=== PATIENT | male | born 1975 | race Caucasian/White ===

== ENCOUNTER 2020-08-21 21:02 | Outpatient (REF) | payer MEDICAID, SELFPAY ==
[2020-08-23 16:30] LABS: COVID-19 RT-PCR UVMMC Result Negative (Negative)
== END 2020-08-21 21:22 ==
LOC: NCHCN 21:02
PROVIDERS: PCP Nurse Practitioner Family; Visit Provider Nurse Practitioner Family
DX: J06.9 Acute upper respiratory infection, unspecified (principal)
CPT/HCPCS: U0003

== ENCOUNTER 2020-09-05 16:20 | Outpatient (REF) | payer MEDICAID, SELFPAY ==
[2020-09-05 20:07] LABS: Cholesterol 254 mg/dL (<200); HDL Cholesterol 33 mg/dL (40-60); Triglyceride 480 mg/dL (<150)
[2020-09-05 20:33] LABS: LDL CHOLESTEROL 162 mg/dL (<100)
== END 2020-09-05 16:40 ==
LOC: NCHCN 16:20
PROVIDERS: PCP Nurse Practitioner Family; Visit Provider Family Medicine
DX: Z13.1 Encounter for screening for diabetes mellitus (principal); Z13.220 Encounter for screening for lipoid disorders
CPT/HCPCS: 80061; 83721; 83036

== ENCOUNTER 2020-12-07 09:38 | Outpatient (CLI) | payer MEDICAID, SELFPAY ==
--- NOTE | 2020-12-07 14:53 | DI.RAD_ITS ---
Exam(s) XR CHEST 2V PA LATERAL EXAM: XR CHEST 2V PA LATERAL CLINICAL HISTORY: COUGH, R05,DYSPNEA ON EXERTION,R06.09. TECHNIQUE: 2D digital imaging was performed. COMPARISON: No exams were available for comparison FINDINGS: Heart size is normal. The mediastinum is not widened. Lungs are clear. No infiltrates nor pleural effusions. IMPRESSION: No acute pulmonary findings. DATA REPOSITORY: RADIATION DOSE DELIVERED:
== END 2020-12-07 09:58 ==
PROVIDERS: PCP Nurse Practitioner Family; Visit Provider Family Medicine
DX: R05 Cough (principal); R06.09 Other forms of dyspnea
CPT/HCPCS: 71046

== ENCOUNTER 2020-12-07 19:07 | Outpatient (REF) | payer MEDICAID, SELFPAY ==
[2020-12-07 19:15] LABS: HCT 42.5 % (40.0-50.0); HGB 15.4 g/dL (13.5-17.5); MCH 32.6 pg (27.0-33.0); MCHC 36.2 % (32.0-36.0); MCV 89.9 fL (80-95); MPV 10.8 fL (8.0-11.0); Platelet Count 206 10^3/uL (130-400); RBC 4.73 10^6/uL (4.36-5.78); RDW 10.7 % (11.8-14.1); RDW-SD 35.1 fL; WBC 6.32 10^3/uL (4.4-10.8)
[2020-12-07 19:57] LABS: NT-proBNP 9 pg/mL (<300)
== END 2020-12-07 19:08 | disposition home or self-care (01) ==
LOC: NCHCN 19:07
PROVIDERS: PCP Nurse Practitioner Family; Visit Provider Family Medicine
DX: R06.09 Other forms of dyspnea (principal)
CPT/HCPCS: 85027; 83880

== ENCOUNTER 2022-03-19 19:11 | Outpatient (REF) | payer MEDICAID, SELFPAY ==
[2022-03-19 19:41] LABS: ESR 4 mm/hr (0-15)
[2022-03-19 19:48] LABS: HCT 42.7 % (40.0-50.0); HGB 15.8 g/dL (13.5-17.5); MCV 89 fL (80-95); Platelet Count 204 10^3/uL (130-400); RBC 4.79 10^6/uL (4.36-5.78); RDW 10.9 % (11.8-14.1); RDW-SD 35.2 fL
[2022-03-19 20:21] LABS: ALT 110 U/L (16-63); AST 53 U/L (15-37); Albumin 4.1 g/dL (3.4-5.0); Alkaline Phosphatase 68 U/L (46-116); Anion Gap 10.9 mmol/L (3-11); BUN 15 mg/dL (7-18); Bilirubin, Total 0.7 mg/dL (0.2-1.0); CO2 27.1 mmol/L (21.0-32.0); CREATININE 1.2 mg/dL (0.70-1.30); Chloride 103 mmol/L (98-107); Creatine Kinase 113 U/L (39-308); Glucose 167 mg/dL (74-106); Potassium 3.7 mmol/L (3.5-5.1); Sodium 141 mmol/L (136-145); TSH (W/Ref FT4) 1.25 uIU/mL (0.36-3.74); Total Protein 7.6 g/dL (6.4-8.2)
[2022-03-21 10:32] LABS: Lyme Ab w Rflx to Lyme Confirm Negative (Negative)
== END 2022-03-19 19:12 | disposition home or self-care (01) ==
LOC: NCHCN 19:11
PROVIDERS: PCP Nurse Practitioner Family; Visit Provider Family Medicine
DX: R53.81 Other malaise (principal); M79.10 Myalgia, unspecified site
CPT/HCPCS: 80053; 82550; 85027; 85652; 84443; 86618